=== PATIENT | female | born 1995 | race Caucasian/White ===

== ENCOUNTER 2018-01-03 20:40 | Emergency (ER) | payer MEDICAID ==
[2018-01-03 23:30] VITALS: BP 109/64
== END 2018-01-03 23:30 | disposition home or self-care (01) ==
LOC: ED 20:40
DX: O12.03 Gestational edema, third trimester (principal); Z3A.32 32 weeks gestation of pregnancy
CPT/HCPCS: Q0092

== ENCOUNTER 2018-02-05 12:19 | Emergency (ER) | payer MEDICAID ==
[~2018-02-05] VITALS: Ht 152.4 cm; Wt 88.9 kg
[2018-02-05 12:22] VITALS: Ht 152.4 cm; Wt 88.9 kg
[2018-02-05 14:41] VITALS: BP 101/71
== END 2018-02-05 14:41 | disposition short-term general hospital (02) ==
LOC: ED 12:19
DX: O75.89 Other specified complications of labor and delivery (principal); Z3A.37 37 weeks gestation of pregnancy